=== PATIENT | female | born 2000 | race Caucasian/White ===

== ENCOUNTER 2020-12-12 12:24 | Outpatient (CLI) | payer BC, SELFPAY ==
--- NOTE | ~2020-12-12 | US_ITS ---
EXAMINATION: US pelvic complete w TV DATE: 12/12/2020 13:32 INDICATION: IUD check TECHNIQUE: Multiple transabdominal and endovaginal sonographic images of the pelvis were obtained. COMPARISON: None. FINDINGS: The uterus measures 9.7 x 5.2 x 4.1 cm. The endometrial complex measures 3-4 mm in thickness. Subtle linear echogenic IUD in expected position within the endometrial canal. There are additional shadowi ng echogenic foci along the anterior wall of the lower uterine segment with location and appearance s uggesting postoperative change related to prior section. There is no free fluid in the pelvi s. IMPRESSION: 1. IUD in expected position within the endometrial canal. Reviewed, dictated and finalized at location B. RATUS REPAIR MECHANIC
== END 2020-12-12 12:25 | disposition home or self-care (01) ==
PROVIDERS: Family Provider Pediatrics; Visit Provider Obstetrics & Gynecology
DX: Z30.431 Encounter for routine checking of intrauterine contraceptive device (principal)
CPT/HCPCS: 76830; 76856

== ENCOUNTER 2021-12-10 17:08 | Outpatient (CLI) | payer BC, SELFPAY ==
--- NOTE | 2021-12-10 17:28 | PC.NURSE ---
1722- Spoke with Dr. Gregory, patient needs to be seen in ER due to gestational age and symptoms. Will discharge patient from our system.
== END 2021-12-10 17:30 | disposition home or self-care (01) ==
LOC: ANHOBOP 17:13 → ANHOBPP 17:14
PROVIDERS: Visit Provider Obstetrics & Gynecology
DX: O26.892 Other specified pregnancy related conditions, second trimester (principal); R51.9 Headache, unspecified; Z3A.14 14 weeks gestation of pregnancy
CPT/HCPCS: 99199

== ENCOUNTER 2021-12-10 17:32 | Emergency (ER) | payer BC, SELFPAY ==
[2021-12-10 17:45] VITALS: BP 133/83; PULSE 76; RESP 18; TEMP 36.6; O2SAT 100
--- NOTE | 2021-12-10 19:15 | PC.NURSE ---
Pt exits ED prior to seeing provider. No sign of distress of any kind.
== END 2021-12-10 17:45 | disposition left against medical advice (07) ==
PROVIDERS: PCP Obstetrics & Gynecology
DX: O26.892 Other specified pregnancy related conditions, second trimester (principal); R51.9 Headache, unspecified; Z3A.14 14 weeks gestation of pregnancy
CPT/HCPCS: 99199

== ENCOUNTER 2021-12-21 12:44 | Outpatient (CLI) | payer BC, SELFPAY ==
--- NOTE | ~2021-12-21 | US_ITS ---
EXAMINATION: US OB follow up DATE: 12/21/2021 13:31 INDICATION: Threatened TECHNIQUE: Real-time transabdominal obstetric ultrasound. FINDINGS: No prior studies for comparison. There is a single living fetus in transverse presentation. The placenta is posterior without placent a previa. Placenta measures 4.3 cm to the cervix. cardiac activity and movement is noted with a heart rate of 142 beats per minute. T he amniotic fluid volume is subjectively normal. The following biometric data were obtained: BPD: 30mm corresponds to gestational age 15 weeks 4 days. Head circumference: 1:15mm corresponds to gestational age 15 weeks 4 days. Abdominal circumference: 89mm corresponds to gestational age 15 weeks 1 days. Femur length: 16mm corresponds to gestational age 14 weeks 4 days. Estimated weight: 111grams +/- 17grams.] IMPRESSION: 1. Single living intrauterine in transverse presentation with an estimated gestational age of 15 weeks 2 days by current ultrasound. EDC by current measurement is 06/12/2022. 2. Posterior placenta without previa measuring 4.3 cm to the cervix. Reviewed, dictated and finalized at location A. NCE AND OPERATIONS OFFICER IMPRESSION: 1. Single living intrauterine in transverse presentation with an est imated gestational age of 15 weeks 2 days by current ultrasound. EDC by current measurement is 06/12/2022. 2. Posterior placenta without previa measuring 4.3 cm to the cervix.
== END 2021-12-21 12:45 | disposition home or self-care (01) ==
PROVIDERS: PCP Family Medicine; Visit Provider Obstetrics & Gynecology
DX: O20.0 Threatened abortion (principal)
CPT/HCPCS: 76816

== ENCOUNTER 2022-01-09 13:20 | Outpatient (CLI) | payer BC, SELFPAY ==
[2022-01-09 14:57] LABS: Hematocrit 35.7 % (37.0-47.0); Hemoglobin 12.4 g/dL (12.0-15.0); Mean Corpuscular HGB Conc 34.7 g/dl (32-36); Mean Corpuscular Hemoglobin 30.5 pg (26-34); Mean Corpuscular Volume 87.7 fl (80-100); Mean Platelet Volume 11.6 fl (7.4-10.4); Platelet Count Result 160 k/mm3 (150-375); Red Blood Count 4.07 M/mm3 (4.2-5.4); Red Cell Distribution Width 14.2 % (11.5-14.5)
[2022-01-09 15:10] LABS: Glucose 1 Hour PP 50gm Dose 137 mg/dL
[2022-01-09 15:51] LABS: HIV 1/2 Ab P24 Ag Result Negative (Negative)
[2022-01-09 16:11] LABS: Hepatitis B Surface Antigen Negative (Negative); Rubella IgG Antibody 19.4 IU/ML
[2022-01-10 06:30] LABS: Rapid Plasma Reagin Non-Reactive (NonReactive)
[2022-01-11 20:28] LABS: CMV IgG Antibody >10.00 U/mL (<0.60)
[2022-01-20 13:51] LABS: CF Result NEGATIVE (NEGATIVE); Ethnicity NG
== END 2022-01-09 13:21 | disposition home or self-care (01) ==
PROVIDERS: PCP Family Medicine; Visit Provider Obstetrics & Gynecology
DX: N92.5 Other specified irregular menstruation (principal)
CPT/HCPCS: 36415; 81220; 81329; 82947; 84702; 85027; 86592; 86644; 86703; 86747; 86762; 86787; 86850; 86900; 86901; 87086; 87088; 87340; G0432

== ENCOUNTER 2022-05-04 16:58 | Observation (INO) | payer BC, SELFPAY ==
[2022-05-04 17:26] VITALS: BP 108/57; PULSE 121
[2022-05-04 17:31] VITALS: BP 114/73; PULSE 113
[2022-05-04 17:34] VITALS: BMI 59.3
--- NOTE | 2022-05-04 17:34 | OBADM ---
This patient, Rosalva Kim, admitted to the OB room OB Post 116 for observation. Patient/family oriented to hospital policies and general routines including ID bracelet, bed and alarms, visiting hours, pain management, procedures, bathroom and other care routines, personal items, smoking policy, room service/diet, and visiting hours. Patient/Family are encouraged to report perceived risks to care and to ask questions if they do not understand what they are told or what they should do. Pt. reports constant lower back pain and tightening in her abdomen since approx. 1430. Pt. also reports she has recently been treated for yeast infection. She is a with Hx of previous c/s.
[2022-05-04 17:38] LABS: Appearance Urine Clear (Clear); Bilirubin Urine 1+ (Negative); Blood Urine Negative (Negative); Color Urine Yellow (Yellow); Glucose Urine UA Negative (Negative); Ketones Urine Trace mg/dL (Negative); Leukocyte Esterase Ur Negative LEU/UL (Negative); Nitrate Urine Negative (Negative); Protein Urine Negative (Negative); Specific Grav Ur 1.025 (1.001-1.035)
[2022-05-04 17:46] VITALS: BP 117/61; PULSE 107
[2022-05-04 17:46] LABS: Bacteria Urine Trace /hpf; Calcium Oxalate Crystals Urine Present /hpf; Mucus Urine Rare /lpf; RBC Urine 0-2 /hpf (0-2); Squamous Epithelial Cell Urine Many /hpf (Few); WBC Urine 0-3 /hpf
[2022-05-04 17:47] LABS: Add Urine Microscopic? YES
[2022-05-04 18:01] VITALS: BP 118/64; PULSE 107
--- NOTE | 2022-05-13 13:07 | P.PNOB_ITS ---
OB - Triage/Final Diagnosis Visit Information Reason for evaluation: other ( low back pain) Comments/Additional reasons for admission: I have assessed the risk for this patient, Rosalva Kim, and determined that she would benefit from observation care. Evaluation Laboratory results: Laboratory Tests 05/04/22 17:30 Urine Color Yellow Urine Appearance Clear Urine pH 6.0 Ur Specific [place] 1.025 Urine Protein Negative Urine Glucose (UA) Negative Urine Ketones Trace Ur Blood (Man) Negative Urine Nitrate Negative Urine Bilirubin 1+ H Urine Urobilinogen 1.0 Leukocyte Esterase Rfl Negative Urine RBC 0-2 Urine WBC 0-3 Ur Squamous Epith Cells Many H Calcium Oxalate Crystal Present Urine Bacteria Trace Urine Mucus Rare
== END 2022-05-04 18:30 | disposition home or self-care (01) ==
PROVIDERS: Admitting Provider Obstetrics & Gynecology Gynecology; PCP Family Medicine; Visit Provider Obstetrics & Gynecology Gynecology
DX: O26.893 Other specified pregnancy related conditions, third trimester (principal); M54.50 Low back pain, unspecified; Z3A.34 34 weeks gestation of pregnancy
CPT/HCPCS: 81001; G0378; G0379

== ENCOUNTER 2022-05-10 08:03 | Outpatient (CLI) | payer BC, SELFPAY ==
[2022-05-10 09:48] LABS: Basophils Percent Auto 0.3 % (0.2-1.2); Eosinophils Absolute Auto 0.1 K/mm3 (0-0.3); Eosinophils Percent Auto 2.1 % (0-4.4); Hematocrit 31.1 % (37.0-47.0); Hemoglobin 10.1 g/dL (12.0-15.0); Immature Granulocyte Absolute 0.04 K/mm3 (0.00-0.031); Immature Granulocyte Percent A 0.7 % (0-0.5); Lymphocytes Absolute Auto 1.35 K/mm3 (0.9-3.2); Lymphocytes Percent Auto 22.3 % (18.3-44.2); Mean Corpuscular HGB Conc 32.5 g/dl (32-36); Mean Corpuscular Hemoglobin 27.7 pg (26-34); Mean Corpuscular Volume 85.4 fl (80-100); Mean Platelet Volume 12.6 fl (7.4-10.4); Monocytes Absolute Auto 0.5 K/mm3 (0.1-0.6); Monocytes Percent Auto 7.9 % (2.6-8.5); Neutrophils Percent Auto 66.7 % (45.5-73.1); Platelet Count Result 155 k/mm3 (150-375); Red Blood Count 3.64 M/mm3 (4.2-5.4); Red Cell Distribution Width 15.6 % (11.5-14.5); White Blood Count 6.1 K/mm3 (4.5-10.0)
[2022-05-10 09:58] LABS: Glucose 1 Hour PP 50gm Dose 162 mg/dL
[2022-05-10 10:37] LABS: HIV 1/2 Ab P24 Ag Result Negative (Negative)
== END 2022-05-10 08:04 | disposition home or self-care (01) ==
LOC: ANHLAB 08:05
PROVIDERS: PCP Family Medicine; Visit Provider Obstetrics & Gynecology
DX: Z34.90 Encounter for supervision of normal pregnancy, unspecified, unspecified trimester (principal); Z3A.00 Weeks of gestation of pregnancy not specified
CPT/HCPCS: 36415; 82947; 85025; 86703; G0432

== ENCOUNTER 2022-05-14 16:00 | Observation (INO) | payer BC, SELFPAY ==
[2022-05-14 16:17] VITALS: BP 100/81; PULSE 112; RESP 20; TEMP 36.1; O2SAT 97
[2022-05-14 16:18] VITALS: BP 100/81; PULSE 111; PULSE 112; O2SAT 96
[2022-05-14 16:25] VITALS: BMI 60.7
--- NOTE | 2022-05-14 16:28 | LDADM ---
This patient, Rosalva Kim, was admitted to OB Post 113 on 05/14/22 at 16:00. Plans for labor, pain management and were discussed with patient. Patient/family oriented to hospital policies and general routines including ID bracelet, bed and alarms, visiting hours, pain management, procedures, bathroom and other care routines, personal items, smoking policy, room service/diet and guest tray routines, infant security routines, and visiting hours. Patient/Family are encouraged to report perceived risks to care and to ask questions if they do not understand what they are told or what they should do. See OBIX for further documentation.
[2022-05-14 16:31] VITALS: BP 110/69; PULSE 108
[2022-05-14 16:46] VITALS: BP 94/45; PULSE 131
[2022-05-14 17:00] VITALS: BP 112/70; PULSE 102
--- NOTE | 2022-05-16 01:37 | PM.OBTRLD ---
OB - Triage/Final Diagnosis Visit Information Reason for evaluation: threatened labor Comments/Additional reasons for admission: I have assessed the risk for this patient, Rosalva Kim, and determined that she would benefit from observation care.
== END 2022-05-14 17:20 | disposition home or self-care (01) ==
PROVIDERS: Admitting Provider Obstetrics & Gynecology; PCP Family Medicine; Visit Provider Obstetrics & Gynecology
DX: O47.9 False labor, unspecified (principal); O26.899 Other specified pregnancy related conditions, unspecified trimester; M79.89 Other specified soft tissue disorders; Z3A.00 Weeks of gestation of pregnancy not specified
CPT/HCPCS: G0378; G0379

== ENCOUNTER 2022-05-30 15:11 | Outpatient (RCR) | payer OTHER, SELFPAY ==
[2022-05-30 16:14] VITALS: BP 121/63; PULSE 119
[2022-05-30 16:26] LABS: SARS-CoV-2 RNA PCR Negative
== END 2022-06-28 14:56 | disposition home or self-care (01) ==
LOC: ANHOBOP 15:11
PROVIDERS: Visit Provider Obstetrics & Gynecology
DX: O36.8130 Decreased fetal movements, third trimester, not applicable or unspecified (principal); Z3A.38 38 weeks gestation of pregnancy
CPT/HCPCS: 59025; C9803; U0003; U0005

== ENCOUNTER 2022-06-04 14:19 | Outpatient (CLI) | payer OTHER, SELFPAY ==
[2022-06-04 18:24] LABS: Hematocrit 29.8 % (37.0-47.0); Hemoglobin 9.3 g/dL (12.0-15.0); Mean Corpuscular HGB Conc 31.2 g/dl (32-36); Mean Corpuscular Hemoglobin 26.2 pg (26-34); Mean Corpuscular Volume 83.9 fl (80-100); Platelet Count Result 151 k/mm3 (150-375); Red Blood Count 3.55 M/mm3 (4.2-5.4); Red Cell Distribution Width 16.7 % (11.5-14.5); White Blood Count 6.1 K/mm3 (4.5-10.0)
[2022-06-05 09:22] LABS: Rapid Plasma Reagin Non-Reactive (NonReactive)
== END 2022-06-04 14:20 | disposition home or self-care (01) ==
LOC: ANHLAB 14:21
PROVIDERS: Visit Provider Obstetrics & Gynecology
DX: Z34.93 Encounter for supervision of normal pregnancy, unspecified, third trimester (principal); Z3A.00 Weeks of gestation of pregnancy not specified
CPT/HCPCS: 36415; 85027; 86592; 86850; 86900; 86901

== ENCOUNTER 2022-06-05 08:29 | Inpatient (IN) | payer OTHER, SELFPAY ==
--- NOTE | 2022-05-13 15:14 | PC.NURSE ---
Phone interview done--requisition for lab draw and pre0op instructed mailed to patient's home Verified with OR schedule and patient--c/s on 06/05/22 at 1030 am
[2022-06-05] VITALS (55 sets, daily range): BP systolic 88–128; BP diastolic 40–79; PULSE 73–173; RESP 15–20; TEMP 36.1–36.5; O2SAT 94–100; BMI 59.8
--- NOTE | 2022-06-05 07:19 | PM.IMHP ---
H&P: HPI History of Present Illness Date/Time: 06/05/22 07:19 21-year-old 2 para 1001 female presents at39+ weeks for repeat delivery. records are on the chart and uncomplicated other than morbid obesity. She did have an elevated 1hour glucose but refused 3hour test. No other significant issues at this time. Chief Complaint: Review of Systems Review of Systems: All systems reviewed & are unremarkable except as noted in HPI and below PMFSH Past Medical History Medical History Abnormal glucose tolerance in ADD (attention deficit disorder) ADHD (attention deficit hyperactivity disorder) Anxiety and depression Fatty liver H/O trichomonal vaginitis Obesity Surgical History Surgical History Delivery by section (12/05/19) primary c/s intolerance History of gynecological procedure (10/24/20) mirena iud insertion History of gynecological procedure (07/20/21) mirena iud removal Family History Family History Father Diabetes mellitus Grandparent Hypertension Social History Social History Years smoked: 1.5 Smoking status: Former smoker Tobacco type: e-cigarettes/vaping Second hand tobacco smoke exposure: No Alcohol intake: never Substance use: never Gender identity (if verbalized by the patient): Female Sexual Orientation (if Verbalized by the Patient): Straight or Heterosexual Spiritual care concerns: No Meds Home Medications and Allergies Home Medications Medication Instructions Recorded Confirmed Type PNV 153-FA 400 mcg-om3 35 mg-dha 2 tablet PO DAILY 05/30/22 05/30/22 History 25 mg-epa 5 mg-fish oil chew tablet ( Gummies) Allergies Allergy/AdvReac Type Severity Reaction Status Date / Time No Known Allergies Allergy Mild Verified 05/29/22 16:07 Exam Const: General: cooperative, healthy appearing and comfortable Resp: Effort & Inspection: normal respiratory effort Auscultation: clear to auscultation bilaterally Cardio: Rate: regular rate Rhythm: regular rhythm GI: Inspection: obesity Auscultation: normal bowel sounds : External Female Exam: normal external appearance Speculum Exam - Vagina: normal appearance of the vagina Speculum Exam - Cervix: normal appearance of the cervix Bimanual exam- vagina & uterus: enlarged ( fundal height 42cm heart tones 140) Assessment and Plan Assessment and plan (1) 39 weeks gestation of : Code(s): Z3A.39 - 39 weeks gestation of Status: Acute (2) Previous delivery affecting : Code(s): O34.219 - Maternal care for unspecified type scar from previous delivery Status: Acute Plan proceed with repeat low transverse section. Tubal ligation has been discussed and declined.
--- NOTE | 2022-06-05 07:23 | WPDHPUPDATE1 ---
History and Physical Update Update Date/Time: 06/05/22 07:23 History and Physical has been reviewed, including an updated exam of the patient. There are NO changes in the patient's condition. Risks, benefits, and alternatives have been discussed and questions answered. Patient agrees to proceed with procedure.
--- NOTE | 2022-06-05 08:29 | LDADM ---
This patient, Rosalva Kim, was admitted to Labor/Delivery/Recovery 120 on 06/05/22 at 08:29. Plans for labor, pain management and were discussed with patient. Patient/family oriented to hospital policies and general routines including ID bracelet, bed and alarms, visiting hours, pain management, procedures, bathroom and other care routines, personal items, smoking policy, room service/diet and guest tray routines, infant security routines, and visiting hours. Patient/Family are encouraged to report perceived risks to care and to ask questions if they do not understand what they are told or what they should do. See OBIX for further documentation.
[2022-06-05] MEDS: LACTATED RINGERS 1,000 ML 125 ML IV CONT (09:11)
--- NOTE | 2022-06-05 09:38 | WPDANESEPPF ---
Anes - Initial Pre Proc Eval Procedure: Operation Date: 06/05/22 10:30 Proposed Procedures p Section - Jethro Gregory MD Date/Time: 06/05/22 09:39 Surgeon: Jethro Gregory MD Pre Op Diagnosis: Patient Data Age: 21 Gender: F Height: 1.63 m Weight: 158 kg Last Vital Signs Pulse 105 H 06/05/22 09:31 BP 108/60 06/05/22 09:31 Allergies Allergy/AdvReac Type Severity Reaction Status Date / Time No Known Allergies Allergy Mild Verified 05/29/22 16:07 Home Medications Medication Instructions Recorded Confirmed Type PNV 153-FA 400 mcg-om3 35 mg-dha 2 tablet PO DAILY 05/30/22 06/05/22 History 25 mg-epa 5 mg-fish oil chew tablet ( Gummies) Patient hx anesthesia problems: none Family hx anesthesia problems: none Results Review: All pre-operative results and documents have been reviewed as part of the pre-operative evaluation. FOR[facility]LY [facility], [facility] Past Medical History Medical History Abnormal glucose tolerance in ADD (attention deficit disorder) ADHD (attention deficit hyperactivity disorder) Anxiety and depression Fatty liver H/O trichomonal vaginitis Obesity GORAN (obstructive sleep apnea) Surgical History Surgical History Delivery by section (12/05/19) primary c/s intolerance History of gynecological procedure (10/24/20) mirena iud insertion History of gynecological procedure (07/20/21) mirena iud removal Family History Family History Father Diabetes mellitus Grandparent Hypertension Social History Social History Years smoked: 3 Smoking status: Former smoker Tobacco type: e-cigarettes/vaping Second hand tobacco smoke exposure: No Alcohol intake: never Substance use: never Gender identity (if verbalized by the patient): Female Sexual Orientation (if Verbalized by the Patient): Straight or Heterosexual Spiritual care concerns: No Anes - Eval Final PreProcedure Day of Procedure 06/05/22 09:39 Patient weight: super morbidly obese Heart: regular rate and rhythm Lungs: decreased breath sounds Airway: Mallampati scale class II Neurological: alert and oriented Last oral intake: >/= 8 hours ASA classification: III Emergent: no Anesthetic plan: proceed Anesthesia type and monitoring: regional spinal and standard monitoring Results Review: All pre-operative results and documents have been reviewed as part of the pre-operative evaluation. Informed Consent: The patient's anesthetic plan and its attendant risks and benefits were discussed with the patient/family/POA. Questions were solicited and answers provided to the satisfaction of the patient/family/POA.
--- NOTE | 2022-06-05 10:56 | PM.OBPRVD ---
OB - Delivery Note Procedure Procedure: Procedures Operation Date: 06/05/22 10:30 <No data on this case meets the specified criteria> Events: Previous Delivery Route of delivery: Prior to decision for section, ACOG/SMFM labor guidelines were considered and discussed with the patient and staff. Decision made to proceed with the section.: No Specimen: Yes Quantitative Blood Loss (ml): 500 Anesthesia type: Spinal Disposition: Floor Complications: None Narrative: Patient prepped in usual manner for this procedure. Pfannenstiel incision was made and carried down to the fascia. This incision was extended bilaterally length of the skin incision and then dissected away from the rectus muscles. Peritoneum was entered bladder flap was developed in uterus was scored with clear fluid noted. Vertex was delivered and nuchal cord was reduced. Rest of baby was delivered without difficulty cord clamped cut and placenta was removed manually. Uterus was exteriorized and closed using 0 Monocryl in a running interlocking manner with good approximation hemostasis noted. Uterus was returned to the abdomen and gutters were cleared of serosanguineous was clots. Fascia was then approximated 0 Vicryl the left angle midline and the right angle to midline with good approximation noted. Subcutaneous tissue was then approximated using 0 plain suture and luis enrique were used to approximate the skin edges. Patient was sent to recovery room in stable condition. [place] Baby Weeks of gestation at delivery: 39 gender: Female Weight (pounds): 9 Weight (ounces): 5 presentation: vertex Placenta delivery description: Manual Removal Cord Vessel Description: 3 Vessels score one minute: 8 score five minutes: 9 AMG Delivery Billing Delivery Delivery: Delivery Charge
[2022-06-05] MEDS: OXYTOCIN 30 UNITS/NS 500 ML 30 UNITS/500 ML BAG 125 UNITS IV CONT (11:55)
--- NOTE | 2022-06-05 14:33 | OBPPTRN ---
Patient transferred to post room #281 via stretcher. Support person present. Oriented to unit, room, information board, rooming in, admission packet and security measures. Patient verbalizes understanding.
[2022-06-05] MEDS: POLYSACCHARIDE IRON COMPLEX 150 MG CAPSULE PO (16:33)
[2022-06-05] MEDS: KETOROLAC 30 MG/ML VIAL (*BKC) IV PUSH (16:33)
[2022-06-05] MEDS: DOCUSATE SODIUM 100 MG CAPSULE PO (16:33)
[2022-06-05] MEDS: DEXTROSE 5%/0.45% SOD CHL 1,000 ML 125 ML IV CONT (16:34)
[2022-06-05] MEDS: IBUPROFEN 600 MG TABLET PO (21:09)
[2022-06-05] MEDS: HYDROcodone/acetaminophen (*CRX) 5-325 MG TABLET 1 TAB PO (21:09)
[2022-06-06] MEDS: HYDROcodone/acetaminophen (*CRX) 5-325 MG TABLET 1 TAB PO ×2 (00:32→04:50)
[2022-06-06 04:40] VITALS: BP 121/67; PULSE 89; RESP 20; TEMP 36.1
[2022-06-06] MEDS: IBUPROFEN 600 MG TABLET PO ×3 (04:50→19:50)
[2022-06-06 05:32] LABS: Basophils Percent Auto 0.3 % (0.2-1.2); Eosinophils Absolute Auto 0.2 K/mm3 (0-0.3); Eosinophils Percent Auto 2.6 % (0-4.4); Hematocrit 24.5 % (37.0-47.0); Hemoglobin 7.6 g/dL (12.0-15.0); Immature Granulocyte Absolute 0.06 K/mm3 (0.00-0.031); Lymphocytes Absolute Auto 1.52 K/mm3 (0.9-3.2); Lymphocytes Percent Auto 24.3 % (18.3-44.2); Mean Corpuscular Hemoglobin 26.7 pg (26-34); Mean Platelet Volume 12.5 fl (7.4-10.4); Monocytes Absolute Auto 0.6 K/mm3 (0.1-0.6); Monocytes Percent Auto 9.6 % (2.6-8.5); Neutrophils Absolute Auto 3.9 K/mm3 (1.3-6.7); Neutrophils Percent Auto 62.2 % (45.5-73.1); Nucleated Red Blood Cells Perc 0.3 % (0.0-0.2); Platelet Count Result 131 k/mm3 (150-375); Red Blood Count 2.85 M/mm3 (4.2-5.4); White Blood Count 6.3 K/mm3 (4.5-10.0)
--- NOTE | 2022-06-06 08:02 | P.DS_ITS ---
DS: Admitting Diagnosis Discharge Date 06/07/2022 Admitting Diagnosis OB - DS: Summary OB Procedures : None OB Procedures Intrapartum: OB Procedures: : None Peripartum Data Procedures: Procedures Operation Date: 06/05/22 10:30 Actual Procedure Side Surgeon p Section Jethro Gregory MD Time Spent with Patient Time attestation: Total time spent providing and/or coordinating discharge services: DS: Data Data Completed and Pending Pending studies at discharge: Pending at discharge 06/05/22 10:35 Surgical [PTH] Routine Labs on day of discharge: Labs from last 24 hours 06/06/22 04:41 WBC 6.3 RBC 2.85 L Hgb 7.6 L Hct 24.5 L MCV 86.0 MCH 26.7 MCHC 31.0 L RDW 17.0 H Plt Count 131 L MPV 12.5 H Immature Gran % (Auto) 1.0 H Neut % (Auto) 62.2 Lymph % (Auto) 24.3 [place] % (Auto) 9.6 H Eos % (Auto) 2.6 Baso % (Auto) 0.3 Lymph # (Auto) 1.52 [place] # (Auto) 0.6 Eos # (Auto) 0.2 Baso # (Auto) 0.0 Abs Immat Gran (auto) 0.06 H Absolute Neuts (auto) 3.9 Absolute Nucleated RBC 0.0 Nucleated RBC % 0.3 H % Immature Plt Fraction 17.0 H Discharge Plan Discharge Discharging Clinician: Jethro Gregory Patient Disposition: Home, Self-Care Activity: as tolerated Diet: as tolerated Discharge Instructions: return next Friday to office for removal of luis enrique. Patient Instructions: Antibiotic Form Stand Alone Forms: General Discharge Information Follow-up/Referrals: Jethro Gregory MD [Physician] - 3 Weeks Discharge Medications: New hydrocodone-acetaminophen 5-325 mg Tablet 1 tablet PO Q3H PRN (Reason: Moderate Pain (4-6)) Qty: 30 0RF ibuprofen 600 mg Tablet 600 mg PO Q6H PRN (Reason: Cramping) Qty: 30 0RF Continued Gummies 400 mcg-35 mg- 25 mg-5 mg Tablet,Chewable 2 tablet PO DAILY Date of admission: 06/05/22 08:29 Primary Care Provider: PHYSICIAN,CERTIFIED LACTATION COUNSELOR Admitting Provider: Jethro Gregory Attending physician on admission: Jethro Gregory Condition: Stable
[2022-06-06] MEDS: DOCUSATE SODIUM 100 MG CAPSULE PO ×2 (08:18→15:58)
[2022-06-06] MEDS: POLYSACCHARIDE IRON COMPLEX 150 MG CAPSULE PO ×2 (08:18→15:58)
[2022-06-06] MEDS: HYDROcodone/acetaminophen (*CRX) 10-325 MG TABLET 1 TAB PO ×5 (08:19→23:15)
[2022-06-06] MEDS: MULTIVIT/MIN/PREN/FOL AC/IRON TABLET 1 TAB PO (08:19)
[2022-06-06 08:25] VITALS: BP 127/86; PULSE 93; RESP 16; TEMP 36.9; O2SAT 94
--- NOTE | 2022-06-06 17:39 | WPDANLDPN2 ---
Anes-Prog Note L&D Date/Time: 06/06/22 17:39 Comfortable throughout: section Neuraxial method: spinal Epidural/Spinal procedure site: clean & non-tender Neuro status: Neuro function grossly intact. Cardiovascular status: normal Respiratory status: normal Airway patency: baseline Mental status: baseline Post-Op hydration status: normal Vital Signs: Last Vital Signs Temp 36.9 C 06/06/22 08:25 Pulse 93 06/06/22 08:25 Resp 16 06/06/22 08:25 BP 127/86 06/06/22 08:25 Pulse Ox 94 06/06/22 08:25 O2 Del Method Room Air 06/05/22 14:00 Pain score (VAS): 0 I/O: Intake & Output 06/06/22 06/06/22 06/06/22 07:59 15:59 23:59 Intake Total 500 300 Output Total 2400 400 Balance -1900 -100 Patient feedback: Patient satisfied with anesthetic care.
--- NOTE | 2022-06-06 17:39 | WPDANLDNPN2 ---
Anes-Prog Note L&D-Neuraxial Date/Time: 06/06/22 17:39 Neuraxial medications: intrathecal PF morphine Opiod-related complaints: none Patient feedback: Patient satisfied with post-operative pain management.
[2022-06-06 20:40] VITALS: BP 131/91; PULSE 116; RESP 16; TEMP 36.8
[2022-06-07] MEDS: IBUPROFEN 600 MG TABLET PO ×2 (02:22→08:36)
[2022-06-07] MEDS: HYDROcodone/acetaminophen (*CRX) 10-325 MG TABLET 1 TAB PO ×3 (02:22→12:38)
[2022-06-07 08:15] VITALS: BP 148/80; PULSE 97; RESP 16; TEMP 36.8; O2SAT 99
[2022-06-07] MEDS: MULTIVIT/MIN/PREN/FOL AC/IRON TABLET 1 TAB PO (08:36)
[2022-06-07] MEDS: POLYSACCHARIDE IRON COMPLEX 150 MG CAPSULE PO (08:36)
[2022-06-07] MEDS: SIMETHICONE 80 MG TAB.CHEW PO (08:36)
[2022-06-07] MEDS: DOCUSATE SODIUM 100 MG CAPSULE PO (08:36)
[2022-06-07 09:43] VITALS: PULSE 97; RESP 16; O2SAT 99
--- NOTE | 2022-06-07 10:17 | PM.OBDSVD ---
DS: Admitting Diagnosis Discharge Date 06/07/2022 Admitting Diagnosis OB - DS: Summary OB Procedures : None OB Procedures Intrapartum: OB Procedures: : None Peripartum Data Procedures: Procedures Operation Date: 06/05/22 10:30 Actual Procedure Side Surgeon p Section Jethro Gregory MD Time Spent with Patient Time attestation: Total time spent providing and/or coordinating discharge services: DS: Data Data Completed and Pending Pending studies at discharge: Pending at discharge 06/05/22 10:35 Surgical [PTH] Routine Discharge Plan Discharge Discharging Clinician: Jethro Gregory Patient Disposition: Home, Self-Care Activity: as tolerated Diet: as tolerated Discharge Instructions: return next Friday to office for removal of luis enrique. Patient Instructions: Caring for Your Baby (DC), (DC) Stand Alone Forms: General Discharge Information Follow-up/Referrals: Jethro Gregory MD [Physician] - 3 Weeks Discharge Medications: New hydrocodone-acetaminophen 5-325 mg Tablet 1 tablet PO Q3H PRN (Reason: Moderate Pain (4-6)) Qty: 30 0RF ibuprofen 600 mg Tablet 600 mg PO Q6H PRN (Reason: Cramping) Qty: 30 0RF Continued Gummies 400 mcg-35 mg- 25 mg-5 mg Tablet,Chewable 2 tablet PO DAILY Date of admission: 06/05/22 08:29 Primary Care Provider: PHYSICIAN,VOICE NETWORK ENGINEER Admitting Provider: Jethro Gregory Attending physician on admission: Jethro Gregory Condition: Stable
== END 2022-06-07 14:05 | disposition home or self-care (01) | DRG 540 ==
LOC: ANHLDR 08:33 → ANHOB2 13:26
PROVIDERS: Admitting Provider Obstetrics & Gynecology; Visit Provider Obstetrics & Gynecology
PROC: 10D00Z1 Extraction of Products of Conception, Low, Open Approach (ICD-10-PCS; CPT 59514; principal; 2022-06-05 10:30)
DX: O34.211 Maternal care for low transverse scar from previous cesarean delivery (principal); Z37.0 Single live birth; Z3A.39 39 weeks gestation of pregnancy; O69.81X0 Labor and delivery complicated by cord around neck, without compression, not applicable or unspecified; E66.01 Morbid (severe) obesity due to excess calories; O99.214 Obesity complicating childbirth; O99.344 Other mental disorders complicating childbirth; F90.9 Attention-deficit hyperactivity disorder, unspecified type; F41.8 Other specified anxiety disorders; O99.62 Diseases of the digestive system complicating childbirth; K76.0 Fatty (change of) liver, not elsewhere classified
CPT/HCPCS: 36415; 85025; 85055; 88307; A9270; J0131; J1885; J2274; J2370; J2405; J2590; J7120

== ENCOUNTER 2022-07-16 17:46 | Outpatient (CLI) | payer OTHER, SELFPAY ==
[2022-07-16 18:23] LABS: Beta HCG Quantitative < 2.39 mIU/ML
== END 2022-07-16 17:47 | disposition home or self-care (01) ==
PROVIDERS: Visit Provider Obstetrics & Gynecology
DX: N92.6 Irregular menstruation, unspecified (principal)
CPT/HCPCS: 36415; 84702